=== PATIENT | female | born 1950 | race Caucasian/White ===

== ENCOUNTER 2019-02-04 17:46 | Inpatient (IN) | payer MEDICARE ==
[~2019-02-04] VITALS: Ht 167.6 cm; Wt 46.4 kg
[~2019-02-04 17:46] MED LIST: ALBU90OI6 INH; AZIT250 PO; Antivert25 MG PO; GUAI600T33 PO
[2019-02-04 19:09] LABS: BASOPHILS ABSOLUTE AUTO 0.05 K/mm3 (0.00-0.23); BASOPHILS PERCENT AUTO 1 % (0-2); EOSINOPHILS PERCENT AUTO 0 % (0-6); Hematocrit 43.1 % (33.0-51.0); Hemoglobin 14.2 g/dL (11.5-16.0); IMMATURE GRAN ABSOLUTE AUTO 0.02 K/mm3 (0.00-0.10); IMMATURE GRAN PERCENT AUTO 0 % (0-1); LYMPHOCYTES ABSOLUTE AUTO 0.32 K/mm3 (0.84-5.20); LYMPHOCYTES PERCENT AUTO 4 % (21-46); MONOCYTES ABSOLUTE AUTO 0.55 K/mm3 (0.16-1.47); MONOCYTES PERCENT AUTO 6 % (4-13); Mean Corpuscular HGB 29.5 pg (26.0-34.0); Mean Corpuscular HGB Conc 32.9 g/dL (31.5-36.5); Mean Corpuscular Volume 89 fL (80-100); Mean Platelet Volume 9.5 fL (9.1-12.4); NEUTROPHILS ABSOLUTE AUTO 8.11 K/mm3 (1.96-9.15); NEUTROPHILS PERCENT AUTO 90 % (41-73); Platelet Count 149 K/mm3 (150-400); RDW Coefficient Variation 12.4 % (11.7-14.2); RDW Standard Deviation 41.4 fL (35.1-46.3); Red Blood Cell Count 4.82 M/mm3 (3.80-5.20); White Blood Cell Count 9.05 K/mm3 (4.00-11.30)
[2019-02-04 19:21] LABS: Alanine Aminotransfer (ALT/SGP 17 U/L (12-78); Albumin, Blood 3.8 g/dL (3.4-5.0); Albumin/Globulin Ratio 1.1 (0.8-1.8); Alk Phos 82 U/L (50-136); Anion Gap 7 mmol/L (6-16); Aspartate Aminotrans (AST/SGOT 19 U/L (12-37); Bilirubin, Total 0.4 mg/dL (0.1-1.0); Blood Urea Nitrogen 7 mg/dL (8-24); Bun/Creatinine Ratio 16.2 (12.0-20.0); CO2, Blood 28 mmol/L (21-32); Calcium, Blood 8.5 mg/dL (8.5-10.1); Chloride, Blood 91 mmol/L (98-108); Creatinine, Blood 0.43 mg/dL (0.40-1.00); Globulin, Blood 3.6 g/dL (2.2-4.0); Glomerular Filtration Rate >60 (60-); Glucose, Blood 103 mg/dL (70-99); Potassium, Blood 3.8 mmol/L (3.5-5.5); Sodium, Blood 126 mmol/L (136-145); Total Protein, Blood 7.4 g/dL (6.4-8.2); Troponin I 0.064 ng/mL (0.000-0.040)
[2019-02-04 19:28] LABS: Influenza A Negative (NEGATIVE); Influenza B Negative (NEGATIVE)
[2019-02-04] MEDS ORDERED: ASPI325 PO (21:22)
[2019-02-04] MEDS ORDERED: GUAI600T33 PO (21:23)
--- NOTE | 2019-02-05 06:20 | NUR ---
SHIFT SUMMARY PT WAS A NEW ADMIT DURING THE NIGHT, ADMITTED FOR ACUTE RESPIRATORY FAILURE WITH HYPOXIA. SHE ARRIVED ON THE FLOOR APPROXIMATELY 2220. PT IS 68 Y/O, AND A&O X 4. SHE DENIED ANY ACUTE PAIN OR NAUSEA, BUT DID REPORT SOME SOB THAT WAS WORSENED WITH MOVEMENT. SHE IS ON 2L OF O2 VIA NC, AND SATTING IN THE LOW 90S. ALL OTHER VITALS REMAINED STABLE. NO OTHER ACUTE CHANGES IN PT CONDITION NOTED SINCE ADMISSION. WILL CONTINUE TO MONITOR AND TREAT PER EMAR.
[2019-02-05 10:52] LABS: Anion Gap 7 mmol/L (6-16); Blood Urea Nitrogen 10 mg/dL (8-24); Bun/Creatinine Ratio 22.5 (12.0-20.0); CO2, Blood 28 mmol/L (21-32); Calcium, Blood 8.1 mg/dL (8.5-10.1); Chloride, Blood 97 mmol/L (98-108); Creatinine, Blood 0.45 mg/dL (0.40-1.00); Glomerular Filtration Rate >60 (60-); Glucose, Blood 247 mg/dL (70-99); Potassium, Blood 3.6 mmol/L (3.5-5.5); Sodium, Blood 132 mmol/L (136-145)
--- NOTE | 2019-02-05 14:59 | NUR ---
Mrs. Stinson denies fears or concerns. She tells me she knows she will improve. She was emotionally guarded and distant. Non-mosque and declined prayer/deputy county counsel. Advised I would remain available.
--- NOTE | 2019-02-05 19:07 | NUR ---
SHIFT SUMMARY: NO ACUTE CHANGES TO REPORT THIS SHIFT. PT A&O; CALM AND COOPERATIVE WITH CARE. NO C/O PAIN THIS SHIFT. PT ON 2L O2 VIA NC; LUNGS COARSE/WHEEZY; IV STEROIDS, PO ABX & IV ABX CONTINUING. WCTM.
--- NOTE | 2019-02-06 07:31 | NUR ---
NOC SHIFT SUMMARY PT WAS PLEASANT AND COOPERATIVE WITH CARE THIS NIGHT. WENT TO SLEEP SHORTLY AFTER MIDNIGHT MEDS AND SLEPT RESTFULLY THROUGH THE NIGHT. NO ACUTE CHANGES THIS SHIFT. APPEARS IN NO ACUTE DISTRESS. REPORT TO ONCOMING RN.
--- NOTE | 2019-02-06 07:35 | NUR ---
PT agreed to let me work with her as of 729 today.
[2019-02-06 12:53] LABS: Anion Gap 8 mmol/L (6-16); Blood Urea Nitrogen 12 mg/dL (8-24); Bun/Creatinine Ratio 30.2 (12.0-20.0); CO2, Blood 29 mmol/L (21-32); Calcium, Blood 8.8 mg/dL (8.5-10.1); Chloride, Blood 99 mmol/L (98-108); Glomerular Filtration Rate >60 (60-); Glucose, Blood 91 mg/dL (70-99); Potassium, Blood 4.1 mmol/L (3.5-5.5); Sodium, Blood 136 mmol/L (136-145)
--- NOTE | 2019-02-06 19:08 | NUR ---
SHIFT SUMMARY PATIENT W/O C/O AT THIS TIME. TOLERATED DINNER. VOIDED, HAAD BM. FAMILY IN TO SEE. UPDATE GIVEN TO PT RE: PLAN OF CARE.
--- NOTE | 2019-02-06 19:12 | NUR ---
SHIFT SUMMARY PATIENT W/O C/O THIS SHIFT. UP TO SHOWER TODAY. TAKING PO WELL. FAMILY IN TO SEE TODAY. PLAN FOR D/C HOME TOMORROW.
--- NOTE | 2019-02-07 03:49 | NUR ---
NOC SHIFT SUMMARY NO ACUTE CHANGES NOTED THIS SHIFT. PT IS PLEASANT AND COOPERATIVE WITH CARE. AAOX4 RESP HAVE BEEN EVEN AND UNLABORED, ON O2 2LNC. VSS. PT PRESANTLY APPEARS TO BE SLEEPING RESTFULLY. APPEARS IN NO ACUTE DISTRESS WILL CONTINUE TO MONITOR.
[2019-02-07] MEDS ORDERED: AZIT250 PO (15:09)
[2019-02-07] MEDS ORDERED: FURO20 PO ×2 (15:10→15:14)
[2019-02-07] MEDS ORDERED: ALBU3IS INH (15:13)
[2019-02-07] MEDS ORDERED: GAVILAX17 GM PO (15:15)
[2019-02-07] MEDS ORDERED: DELTASONE20 MG PO (15:17)
[2019-02-07] MEDS ORDERED: CEFD300 PO (15:18)
--- NOTE | 2019-02-07 15:59 | NUR ---
DISCHARGE NOTE PT DISCHARGED VIA W/C POV WITH DAUGHTER TO HOME AND IN NO ACUTE DISTRESS AT TIME OF DISCHARGE. PT VERBALIZED UNDERSTANDING OF TAKING ALL MEDICATIONS PRESCRIBED AND TAKING FULL COURSE OF BOTH ANTIBIOTICS. PT TO FOLLOW UP WITH [facility] WITHIN 2 WEEKS.
== END 2019-02-07 16:00 | disposition home or self-care (01) | DRG 291 ==
LOC: ER 17:46 → MEDS 21:12
PROVIDERS: Internal Medicine; Physician Assistant; ADMIT Hospitalist
DX: I50.31 Acute diastolic (congestive) heart failure (principal); J96.01 Acute respiratory failure with hypoxia; J44.1 Chronic obstructive pulmonary disease with (acute) exacerbation; J44.0 Chronic obstructive pulmonary disease with (acute) lower respiratory infection; E87.1 Hypo-osmolality and hyponatremia; I24.8 Other forms of acute ischemic heart disease; J20.9 Acute bronchitis, unspecified; F17.210 Nicotine dependence, cigarettes, uncomplicated; R73.9 Hyperglycemia, unspecified; Z99.81 Dependence on supplemental oxygen
CPT/HCPCS: 36415; 71046; 80048; 80053; 82947; 83036; 83605; 83880; 84145; 84484; 85025; 87040; 87804; 93005; 93010; 93306; 94640; 94667; 94760; 94761; 96365; 99285-25; 99406; J0696; J1650; J2405; J2930; J7030; J7050

== ENCOUNTER 2019-05-16 04:52 | Inpatient (IN) | payer MEDICARE ==
[~2019-05-16] VITALS: Ht 167.6 cm; Wt 50.6 kg
[~2019-05-16 04:52] MED LIST changes: +ALBU3IS INH; +ASPI325 PO; +CEFD300 PO; +DELTASONE20 MG PO; +FURO20 PO; +GAVILAX17 GM PO
[2019-05-16] MEDS ORDERED: ATOR10 PO (05:05)
[2019-05-16] MEDS ORDERED: METO25ER PO (05:05)
[2019-05-16 05:18] LABS: BASOPHILS ABSOLUTE AUTO 0.04 K/mm3 (0.00-0.23); BASOPHILS PERCENT AUTO 1 % (0-2); EOSINOPHILS ABSOLUTE AUTO 0.11 K/mm3 (0.00-0.68); EOSINOPHILS PERCENT AUTO 1 % (0-6); Hematocrit 40.1 % (33.0-51.0); Hemoglobin 12.2 g/dL (11.5-16.0); IMMATURE GRAN ABSOLUTE AUTO 0.02 K/mm3 (0.00-0.10); IMMATURE GRAN PERCENT AUTO 0 % (0-1); LYMPHOCYTES ABSOLUTE AUTO 0.79 K/mm3 (0.84-5.20); LYMPHOCYTES PERCENT AUTO 10 % (21-46); MONOCYTES ABSOLUTE AUTO 0.37 K/mm3 (0.16-1.47); MONOCYTES PERCENT AUTO 5 % (4-13); Mean Corpuscular HGB 29.3 pg (26.0-34.0); Mean Corpuscular HGB Conc 30.4 g/dL (31.5-36.5); Mean Corpuscular Volume 96 fL (80-100); Mean Platelet Volume 10.6 fL (9.1-12.4); NEUTROPHILS ABSOLUTE AUTO 6.75 K/mm3 (1.96-9.15); NEUTROPHILS PERCENT AUTO 84 % (41-73); Platelet Count 180 K/mm3 (150-400); RDW Coefficient Variation 12.6 % (11.7-14.2); RDW Standard Deviation 44.5 fL (35.1-46.3); Red Blood Cell Count 4.17 M/mm3 (3.80-5.20); White Blood Cell Count 8.08 K/mm3 (4.00-11.30)
[2019-05-16 05:43] LABS: Alanine Aminotransfer (ALT/SGP 52 U/L (12-78); Albumin, Blood 3.8 g/dL (3.4-5.0); Albumin/Globulin Ratio 1.3 (0.8-1.8); Alk Phos 70 U/L (50-136); Anion Gap 3 mmol/L (6-16); Aspartate Aminotrans (AST/SGOT 36 U/L (12-37); Bilirubin, Total 0.5 mg/dL (0.1-1.0); Blood Urea Nitrogen 11 mg/dL (8-24); Bun/Creatinine Ratio 14.2 (12.0-20.0); CO2, Blood 35 mmol/L (21-32); Calcium, Blood 8.1 mg/dL (8.5-10.1); Chloride, Blood 101 mmol/L (98-108); Creatinine, Blood 0.78 mg/dL (0.40-1.00); Globulin, Blood 2.9 g/dL (2.2-4.0); Glomerular Filtration Rate >60 (60-); Glucose, Blood 231 mg/dL (70-99); Potassium, Blood 4.2 mmol/L (3.5-5.5); Sodium, Blood 139 mmol/L (136-145); Total Protein, Blood 6.7 g/dL (6.4-8.2)
[2019-05-16 05:45] LABS: Troponin I 0.054 ng/mL (0.000-0.040)
[2019-05-16 06:28] LABS: PCO2 Arterial 76.9 mmHg (35-45); PO2 Arterial 57.6 mmHg (80-100); pH Blood Arterial 7.25 (7.35-7.45)
[2019-05-16] MEDS ORDERED: ASPI81CH PO (12:02)
--- NOTE | 2019-05-16 12:57 | NUR ---
PATIENT ARRIVED FROM ED IN ROOM 14 VIA [facility] AFTER REPORT WAS OBTAINED FROM POLLY ARCE, PATIENT WAS ABLE TO MOVE SELF OVER FROM GURNEY TO BED, PATIENT WAS ON BIPAP UPON ARRIVAL, BUT PLACED ON NASAL CANNULA, PLACED ON MONITOR, VSS, NORMAL SINUS RHYTHM, 02 SATS AT 97 %, AFEBRILE, DENIES PAIN, CHEST PAIN/PRESSURE, REPORTS NO SOB, SCD'S PLACED ON PATIENT, PATIENT IS ABLE TO GET UP TO BSC TO URINATE AND HAVE A BOWEL MOVEMENT, LUNG SOUNDS ARE DIMINISHED AND SLIGHTLY TIGHT, SKIN DRY, BUT INTACT, PATIENT AND DAUGHTER WERE ORIENTED TO ROOM AND NEW ENVIRONMENT, CALL LIGHT IN REACH, WILL CONTINUE TO MONITOR.
--- NOTE | 2019-05-16 13:52 | NUR ---
PATIENT IS RESTING COMFORTABLY, APPEARS TO BE SLEEPING, CONTINUES ON 2L NC AND SATING AT 98%, ABLE TO MAKE NEEDS KNOWN, CALL LIGHT IN REACH, WILL CONTINUE TO MONITOR.
--- NOTE | 2019-05-16 16:44 | NUR ---
REPORT WAS GIVEN TO POLLY HERNANDEZ, ON PCU VIA TELEPHONE, PATIENT WILL BE MOVED TO ROOM PCU 8.
--- NOTE | 2019-05-16 17:53 | NUR ---
PATIENT TRANSFERRED TO PCU 8 VIA WHEELCHAIR WITH ALL BELONGINGS AND MEDICATIONS.
--- NOTE | 2019-05-16 18:45 | NUR ---
SHIFT SUMMARY PT TRANSFERRED FROM ICU AT 1800. A&OX4, VSS, TELE SR W/PACS & PVCS @ 94, BIOX AT BEDSIDE. TEDS & SCDS ON. VIJAY PO, DENIES N&V. DENIES PAIN. DENIES SOB AT THIS TIME; 3L NC AT REST AND 4L NC W/EXERTION. AMB SBA TO BRP. VOIDING WELL. WCTM & TX PER EMAR UNTIL REPORT GIVEN TO ONCOMING GEE MATIAS.
[2019-05-17 03:19] LABS: BASOPHILS PERCENT AUTO 0 % (0-2); EOSINOPHILS PERCENT AUTO 0 % (0-6); Hematocrit 35.2 % (33.0-51.0); Hemoglobin 11.2 g/dL (11.5-16.0); IMMATURE GRAN ABSOLUTE AUTO 0.01 K/mm3 (0.00-0.10); IMMATURE GRAN PERCENT AUTO 0 % (0-1); LYMPHOCYTES ABSOLUTE AUTO 0.37 K/mm3 (0.84-5.20); LYMPHOCYTES PERCENT AUTO 10 % (21-46); MONOCYTES ABSOLUTE AUTO 0.15 K/mm3 (0.16-1.47); MONOCYTES PERCENT AUTO 4 % (4-13); Mean Corpuscular HGB 29.9 pg (26.0-34.0); Mean Corpuscular HGB Conc 31.8 g/dL (31.5-36.5); Mean Corpuscular Volume 94 fL (80-100); Mean Platelet Volume 11.1 fL (9.1-12.4); NEUTROPHILS ABSOLUTE AUTO 3.36 K/mm3 (1.96-9.15); NEUTROPHILS PERCENT AUTO 86 % (41-73); Platelet Count 128 K/mm3 (150-400); RDW Coefficient Variation 12.6 % (11.7-14.2); RDW Standard Deviation 43.6 fL (35.1-46.3); Red Blood Cell Count 3.74 M/mm3 (3.80-5.20); White Blood Cell Count 3.89 K/mm3 (4.00-11.30)
[2019-05-17 03:37] LABS: Alanine Aminotransfer (ALT/SGP 46 U/L (12-78); Albumin, Blood 3.6 g/dL (3.4-5.0); Albumin/Globulin Ratio 1.3 (0.8-1.8); Alk Phos 61 U/L (50-136); Anion Gap 3 mmol/L (6-16); Aspartate Aminotrans (AST/SGOT 35 U/L (12-37); Bilirubin, Total 0.3 mg/dL (0.1-1.0); Blood Urea Nitrogen 14 mg/dL (8-24); Bun/Creatinine Ratio 26.9 (12.0-20.0); CO2, Blood 34 mmol/L (21-32); Calcium, Blood 8.6 mg/dL (8.5-10.1); Chloride, Blood 102 mmol/L (98-108); Creatinine, Blood 0.52 mg/dL (0.40-1.00); Globulin, Blood 2.7 g/dL (2.2-4.0); Glomerular Filtration Rate >60 (60-); Glucose, Blood 137 mg/dL (70-99); Potassium, Blood 4.2 mmol/L (3.5-5.5); Sodium, Blood 139 mmol/L (136-145); Total Protein, Blood 6.3 g/dL (6.4-8.2)
[2019-05-17 05:06] LABS: PCO2 Arterial 52.6 mmHg (35-45); PO2 Arterial 126 mmHg (80-100); pH Blood Arterial 7.41 (7.35-7.45)
--- NOTE | 2019-05-17 05:55 | NUR ---
NEW 20G PIV PLACED TO RIGHT WRIST AFTER FIRST ATTEMT TO PLACE IN RIGHT HAND FAILED. GOOD BLOOD RETURN NOTED AND SITE FLUSHES WITH EASE. PREV 18G PIV TO LEFT AC REMOVED AFTER BECOMING PAINFUL AND LEAKING. CATH TIP INTACT, TOLERATED WELL. DEMNIES FURTHER NEEDS OR WANTS AT THIS TIME. SAFETY MEASURES IN PLACE. WILL CONTINUE TO MONITOR.
--- NOTE | 2019-05-17 06:06 | NUR ---
SHIFT SUMMARY LYING IN HIGH FOWLERS WITH EYES OPEN WHILE WATCHING TV AND DRINKLING COFFEE. WAS GETTING CONCERNED ABOUT HAVING A BM, BUT WAS ABLE TO HAVE A LARGE BM WITHOUT DIFFICULTY. DENIES PAIN, DISCOMFORT, OR FURTHER NEEDS AT THIS TIME. NO FURTHER CHANGES SINCE START OF SHIFT. SAFETY MEASURES IN PLACE. WILL CONTINUE TO MONITOR.
--- NOTE | 2019-05-17 17:36 | NUR ---
SHIFT SUMMARY/ TRANSFER NOTE PT TRANSFERRED TO ROOM 363 AT 1730. REPORT GIVEN TO EDGARDO HATCH RN AT 1715 WHO ASSUMED CARE UPON TRANSFER. PT AXO, PLEASANT AND COOPERATIVE WITH CARE. ON 3L AT REST AND 4L WITH EXERTION. PT O2 REMAINED AT 95 %. SINUS TACH. SINUS WITH PVC AND PAC'S 110-90'S. NO ACUTE CHANGES THIS SHIFT. PT UP WITH SBA. BED IN LOW POSITION, CALL LIGHT WITHIN REACH.
--- NOTE | 2019-05-17 17:39 | NUR ---
PATIENT TRANSFER THE PATIENT WAS TRANSFERRED TO THE MEDICAL FLOOR TO ROOM #363 FROM PCU#8, AFTER REPORT WAS CALLED UP TO THE FLOOR FROM ALTAF MATIAS. THE PATIENT WAS BROUGHT UP IN A WHEEL CHAIR AND MADE COMFORTABLE IN HER ROOM, WITH THE CALL LIGHT WITHIN REACH. WILL CONTINUE TO MONITOR.
--- NOTE | 2019-05-18 06:17 | NUR ---
SHIFT SUMMARY PT HAS NOT SLEPT WELL DURING THE NIGHT. HAS HAD C/O FEELING LIKE SHE CAN'T BREATHE. STATES SHE IS HAVING SINUS PRESSURE AND WAS GIVEN SUDAFED WHICH HELPED LAST NIGHT. RECEIVED NO RELIEF FROM THAT AND IS HAVING INCREASED ANXIETY, ORDER RECEIVED FOR PO ATIVAN. PT HAD SOME RELIEF FROM THIS, BUT NOW FEELING THIS AM IF SHE IS MORE SHORT OF BREATH. RT CALLED FOR BREATHING TREATMENT, WILL CONTINUE TO MONITOR.
--- NOTE | 2019-05-18 18:00 | NUR ---
SHIFT SUMMARY THE PATIENT PRESENTED THIS SHIFT A&O X4, WITH VITALS WNL AND WITH LUNG SOUNDS THAT WERE DIMINISHED WITH FINE CRACKLES AT THE BASES. THE PATIENT REFUSED BREAKFAST, STATING THAT SHE WAS TO TIRED TO EAT. THE PATIENT SLEPT MOST OF THE MORNING AND ATE LUNCH. THE PATIENT HAS HAD FAMILY AND FRIENDS VISITING THIS SHIFT. THE PATIENT IS EATING DINNER AT THIS TIME, WILL CONTINUE TO MONITOR.
--- NOTE | 2019-05-19 06:09 | NUR ---
SHIFT SUMMARY PT SLEPT WELL, HAD A MUCH BETTER NIGHT. OFFERS NO C/O'S THIS AM. NO ACUTE EVENTS NOTED DURING THE NIGHT, WILL CONTINUE TO MONITOR.
--- NOTE | 2019-05-19 11:50 | NUR ---
Patient is sitting up in bed and daughter Jodie is bedside. Patient and Jodie told me about their family, their amrit backgound and about the of Jodie's child 23 years ago. Jodie clearly showed signs of spiritual distress yet allowed me to provide grief support, pastoral correctional substance abuse counselor and normalized her experience. Patient explained that she is feeling better and will most likely be discharged today. I provided prayer for patient and Jodie. Both responded well to all interventions and showed signs of restored amrit.
[2019-05-19] MEDS ORDERED: FURO40 PO (12:56)
[2019-05-19] MEDS ORDERED: ALBU3IS INH (12:58)
[2019-05-19] MEDS ORDERED: METO25ER PO (13:00)
[2019-05-19] MEDS ORDERED: PRED10 (13:05)
[2019-05-19] MEDS ORDERED: SUDAFED PO (13:10)
[2019-05-19] MEDS ORDERED: Florastor250 MG PO (13:12)
[2019-05-19] MEDS ORDERED: AZIT500 PO (13:13)
[2019-05-19] MEDS ORDERED: CEFD300 PO (13:14)
--- NOTE | 2019-05-19 14:17 | NUR ---
PT. DISCHARGED HOME WITH DAUGHTER. THE ONLY IV THE PT. HAD WAS IN HER RIGHT WRIST WHICH I DC'D INTACT BEFORE DISCHARGE. MEDS FAXED TO [facility] ON [address]. PT'S DAUGHTER BROUGHT IN THE PT'S OXYGEN TO GO HOME WITH.
== END 2019-05-19 14:05 | disposition home or self-care (01) | DRG 291 ==
LOC: ER 04:52 → ERHOLD 06:37 → ICUW 11:48 → PCU 18:05 → MEDS 05-17 17:27 → ENPENDDIS 05-19 11:13 → MEDS 05-19 14:05
PROVIDERS: Emergency Medicine; ADMIT Internal Medicine
DX: I50.33 Acute on chronic diastolic (congestive) heart failure (principal); J96.21 Acute and chronic respiratory failure with hypoxia; J96.22 Acute and chronic respiratory failure with hypercapnia; J44.1 Chronic obstructive pulmonary disease with (acute) exacerbation; E87.2 Acidosis; R64 Cachexia; E78.5 Hyperlipidemia, unspecified; Z99.81 Dependence on supplemental oxygen; Z87.891 Personal history of nicotine dependence; Z66 Do not resuscitate
CPT/HCPCS: 36415; 36600; 71045; 74018; 80053; 82803; 83605; 83880; 84484; 85025; 87040; 93005; 93010; 94640; 94644; 94660; 94760; 94762; 96365; 96366; 96367; 96372-59; 96375; 99285-25; J0456; J0696; J1100; J1650; J1940; J2930; J7050; J7512

== ENCOUNTER 2019-06-01 13:14 | Emergency (ER) | payer MEDICARE ==
[~2019-06-01] VITALS: Ht 167.6 cm; Wt 49.0 kg
[~2019-06-01 13:14] MED LIST changes: +ASPI81CH PO; +ATOR10 PO; +AZIT500 PO; +FURO40 PO; +Florastor250 MG PO; +METO25ER PO; +PRED10; +SUDAFED PO
[2019-06-01 13:48] LABS: BASOPHILS ABSOLUTE AUTO 0.02 K/mm3 (0.00-0.23); BASOPHILS PERCENT AUTO 0 % (0-2); EOSINOPHILS ABSOLUTE AUTO 0.07 K/mm3 (0.00-0.68); EOSINOPHILS PERCENT AUTO 1 % (0-6); Hematocrit 41.4 % (33.0-51.0); Hemoglobin 12.9 g/dL (11.5-16.0); IMMATURE GRAN ABSOLUTE AUTO 0.02 K/mm3 (0.00-0.10); IMMATURE GRAN PERCENT AUTO 0 % (0-1); LYMPHOCYTES ABSOLUTE AUTO 0.92 K/mm3 (0.84-5.20); LYMPHOCYTES PERCENT AUTO 14 % (21-46); MONOCYTES ABSOLUTE AUTO 0.75 K/mm3 (0.16-1.47); MONOCYTES PERCENT AUTO 11 % (4-13); Mean Corpuscular HGB 29.3 pg (26.0-34.0); Mean Corpuscular HGB Conc 31.2 g/dL (31.5-36.5); Mean Corpuscular Volume 94 fL (80-100); Mean Platelet Volume 9.8 fL (9.1-12.4); NEUTROPHILS PERCENT AUTO 74 % (41-73); Platelet Count 182 K/mm3 (150-400); RDW Coefficient Variation 12.6 % (11.7-14.2); RDW Standard Deviation 43.6 fL (35.1-46.3); White Blood Cell Count 6.78 K/mm3 (4.00-11.30)
[2019-06-01 14:04] LABS: Alanine Aminotransfer (ALT/SGP 34 U/L (12-78); Albumin, Blood 3.7 g/dL (3.4-5.0); Albumin/Globulin Ratio 1.4 (0.8-1.8); Alk Phos 61 U/L (50-136); Anion Gap 4 mmol/L (6-16); Aspartate Aminotrans (AST/SGOT 16 U/L (12-37); Bilirubin, Total 0.5 mg/dL (0.1-1.0); Blood Urea Nitrogen 18 mg/dL (8-24); Bun/Creatinine Ratio 31.6 (12.0-20.0); CO2, Blood 33 mmol/L (21-32); Calcium, Blood 8.5 mg/dL (8.5-10.1); Chloride, Blood 99 mmol/L (98-108); Creatinine, Blood 0.57 mg/dL (0.40-1.00); Globulin, Blood 2.7 g/dL (2.2-4.0); Glomerular Filtration Rate >60 (60-); Glucose, Blood 155 mg/dL (70-99); Sodium, Blood 136 mmol/L (136-145); Total Protein, Blood 6.4 g/dL (6.4-8.2); Troponin I <0.015 ng/mL (0.000-0.040)
== END 2019-06-01 16:32 | disposition home or self-care (01) ==
LOC: ER 13:14
PROVIDERS: Physician Assistant
DX: R07.9 Chest pain, unspecified (principal); J44.9 Chronic obstructive pulmonary disease, unspecified; E78.5 Hyperlipidemia, unspecified; I50.9 Heart failure, unspecified; Z87.891 Personal history of nicotine dependence; Z79.899 Other long term (current) drug therapy; Z79.82 Long term (current) use of aspirin
CPT/HCPCS: 36415; 71046; 80053; 84484; 85025; 93005; 93010; 94640; 99285-25

== ENCOUNTER 2019-08-20 14:18 | Emergency (ER) | payer MEDICARE ==
[~2019-08-20] VITALS: Ht 167.6 cm; Wt 52.2 kg
[2019-08-20 15:04] LABS: BASOPHILS ABSOLUTE AUTO 0.02 K/mm3 (0.00-0.23); BASOPHILS PERCENT AUTO 0 % (0-2); EOSINOPHILS ABSOLUTE AUTO 0.04 K/mm3 (0.00-0.68); EOSINOPHILS PERCENT AUTO 1 % (0-6); Hematocrit 41.5 % (33.0-51.0); Hemoglobin 13.1 g/dL (11.5-16.0); IMMATURE GRAN ABSOLUTE AUTO 0.02 K/mm3 (0.00-0.10); IMMATURE GRAN PERCENT AUTO 0 % (0-1); LYMPHOCYTES ABSOLUTE AUTO 0.87 K/mm3 (0.84-5.20); LYMPHOCYTES PERCENT AUTO 14 % (21-46); MONOCYTES ABSOLUTE AUTO 0.76 K/mm3 (0.16-1.47); MONOCYTES PERCENT AUTO 12 % (4-13); Mean Corpuscular HGB 29.6 pg (26.0-34.0); Mean Corpuscular HGB Conc 31.6 g/dL (31.5-36.5); Mean Corpuscular Volume 94 fL (80-100); Mean Platelet Volume 10.4 fL (9.1-12.4); NEUTROPHILS ABSOLUTE AUTO 4.54 K/mm3 (1.96-9.15); NEUTROPHILS PERCENT AUTO 73 % (41-73); Platelet Count 205 K/mm3 (150-400); RDW Coefficient Variation 12.8 % (11.7-14.2); RDW Standard Deviation 44.5 fL (35.1-46.3); Red Blood Cell Count 4.42 M/mm3 (3.80-5.20); White Blood Cell Count 6.25 K/mm3 (4.00-11.30)
[2019-08-20 15:27] LABS: Alanine Aminotransfer (ALT/SGP 29 U/L (12-78); Alk Phos 81 U/L (50-136); Anion Gap 3 mmol/L (6-16); Aspartate Aminotrans (AST/SGOT 24 U/L (12-37); Bilirubin, Total 0.5 mg/dL (0.1-1.0); Blood Urea Nitrogen 7 mg/dL (8-24); Bun/Creatinine Ratio 14.4 (12.0-20.0); CO2, Blood 35 mmol/L (21-32); Calcium, Blood 9.1 mg/dL (8.5-10.1); Chloride, Blood 93 mmol/L (98-108); Creatinine, Blood 0.49 mg/dL (0.40-1.00); Globulin, Blood 3.9 g/dL (2.2-4.0); Glomerular Filtration Rate >60 (60-); Glucose, Blood 103 mg/dL (70-99); Potassium, Blood 3.7 mmol/L (3.5-5.5); Sodium, Blood 131 mmol/L (136-145); Total Protein, Blood 7.9 g/dL (6.4-8.2)
[2019-08-20] MEDS ORDERED: Wal-Phed30 MG PO (15:27)
[2019-08-20 15:29] LABS: Troponin I <0.015 ng/mL (0.000-0.040)
[2019-08-20] MEDS ORDERED: METPRE4DP PO (17:06)
[2019-08-20] MEDS ORDERED: LEVO750 PO (17:06)
== END 2019-08-20 18:13 | disposition home or self-care (01) ==
LOC: ER 14:18
PROVIDERS: Emergency Medicine
DX: J44.0 Chronic obstructive pulmonary disease with (acute) lower respiratory infection (principal); J18.9 Pneumonia, unspecified organism; I50.9 Heart failure, unspecified; E78.5 Hyperlipidemia, unspecified; Z88.2 Allergy status to sulfonamides; Z91.018 Allergy to other foods; Z79.82 Long term (current) use of aspirin; Z79.899 Other long term (current) drug therapy; Z79.51 Long term (current) use of inhaled steroids; Z99.81 Dependence on supplemental oxygen
CPT/HCPCS: 36415; 71046; 80053; 83605; 83880; 84484; 85025; 87040; 93005; 93010; 96365; 96367; 96375; 99284-25; J0456; J0696; J2930; J7050

== ENCOUNTER 2019-09-07 22:32 | Emergency (ER) | payer MEDICARE ==
[~2019-09-07] VITALS: Ht 167.6 cm; Wt 49.0 kg
[~2019-09-07 22:32] MED LIST changes: +LEVO750 PO; +METPRE4DP PO; +Wal-Phed30 MG PO
[2019-09-08 00:25] LABS: BASOPHILS ABSOLUTE AUTO 0.04 K/mm3 (0.00-0.23); BASOPHILS PERCENT AUTO 1 % (0-2); EOSINOPHILS ABSOLUTE AUTO 0.09 K/mm3 (0.00-0.68); EOSINOPHILS PERCENT AUTO 1 % (0-6); Hematocrit 38.5 % (33.0-51.0); Hemoglobin 12.2 g/dL (11.5-16.0); IMMATURE GRAN ABSOLUTE AUTO 0.01 K/mm3 (0.00-0.10); IMMATURE GRAN PERCENT AUTO 0 % (0-1); LYMPHOCYTES PERCENT AUTO 17 % (21-46); MONOCYTES PERCENT AUTO 9 % (4-13); Mean Corpuscular HGB 29.6 pg (26.0-34.0); Mean Corpuscular HGB Conc 31.7 g/dL (31.5-36.5); Mean Corpuscular Volume 93 fL (80-100); Mean Platelet Volume 9.8 fL (9.1-12.4); NEUTROPHILS ABSOLUTE AUTO 4.64 K/mm3 (1.96-9.15); NEUTROPHILS PERCENT AUTO 72 % (41-73); Platelet Count 224 K/mm3 (150-400); RDW Coefficient Variation 12.4 % (11.7-14.2); RDW Standard Deviation 43.4 fL (35.1-46.3); Red Blood Cell Count 4.12 M/mm3 (3.80-5.20); White Blood Cell Count 6.48 K/mm3 (4.00-11.30)
[2019-09-08 00:45] LABS: Alanine Aminotransfer (ALT/SGP 23 U/L (12-78); Albumin, Blood 3.8 g/dL (3.4-5.0); Albumin/Globulin Ratio 1.1 (0.8-1.8); Alk Phos 72 U/L (50-136); Anion Gap 5 mmol/L (6-16); Aspartate Aminotrans (AST/SGOT 29 U/L (12-37); Bilirubin, Total 0.5 mg/dL (0.1-1.0); Blood Urea Nitrogen 18 mg/dL (8-24); Bun/Creatinine Ratio 32.9 (12.0-20.0); CO2, Blood 33 mmol/L (21-32); Calcium, Blood 8.9 mg/dL (8.5-10.1); Chloride, Blood 95 mmol/L (98-108); Creatinine, Blood 0.55 mg/dL (0.40-1.00); Globulin, Blood 3.5 g/dL (2.2-4.0); Glomerular Filtration Rate >60 (60-); Glucose, Blood 102 mg/dL (70-99); Potassium, Blood 5.2 mmol/L (3.5-5.5); Sodium, Blood 133 mmol/L (136-145); Total Protein, Blood 7.3 g/dL (6.4-8.2); Troponin I <0.015 ng/mL (0.000-0.040)
[2019-09-08] MEDS ORDERED: Prednisone20 MG PO (05:29)
== END 2019-09-08 06:10 | disposition home or self-care (01) ==
LOC: ER 22:32
PROVIDERS: Physician Assistant
DX: J44.1 Chronic obstructive pulmonary disease with (acute) exacerbation (principal); Z87.01 Personal history of pneumonia (recurrent); Z87.891 Personal history of nicotine dependence; Z88.2 Allergy status to sulfonamides; Z91.018 Allergy to other foods; Z79.899 Other long term (current) drug therapy; Z79.82 Long term (current) use of aspirin; Z79.52 Long term (current) use of systemic steroids
CPT/HCPCS: 36415; 71046; 80053; 83880; 84484; 85025; 93005; 93010; 94640; 94644; 96374; 99284-25; J2930

== ENCOUNTER 2019-10-11 01:05 | Inpatient (IN) | payer MEDICARE ==
[~2019-10-11] VITALS: Ht 165.1 cm; Wt 51.1 kg
[~2019-10-11 01:05] MED LIST changes: +Prednisone20 MG PO
[2019-10-11 01:25] LABS: Chloride (POC) 91 mmol/L (98-108); Creatinine (POC) 0.8 mg/dL (0.6-1.0); Glucose (ISTAT POC) 164 mg/dL (70-99); Hemoglobin (POC) 13.6 g/dL (12.0-16.0); Potassium (POC) 4.6 mmol/L (3.5-5.5); Sodium (POC) 129 mmol/L (135-148); Total CO2 (POC) 32 mmol/L (21-32)
[2019-10-11 01:33] LABS: BASOPHILS ABSOLUTE AUTO 0.08 K/mm3 (0.00-0.23); BASOPHILS PERCENT AUTO 1 % (0-2); EOSINOPHILS ABSOLUTE AUTO 0.21 K/mm3 (0.00-0.68); EOSINOPHILS PERCENT AUTO 2 % (0-6); Hematocrit 40.7 % (33.0-51.0); Hemoglobin 12.7 g/dL (11.5-16.0); IMMATURE GRAN ABSOLUTE AUTO 0.02 K/mm3 (0.00-0.10); IMMATURE GRAN PERCENT AUTO 0 % (0-1); LYMPHOCYTES ABSOLUTE AUTO 3.22 K/mm3 (0.84-5.20); LYMPHOCYTES PERCENT AUTO 36 % (21-46); MONOCYTES PERCENT AUTO 10 % (4-13); Mean Corpuscular HGB 29.5 pg (26.0-34.0); Mean Corpuscular HGB Conc 31.2 g/dL (31.5-36.5); Mean Corpuscular Volume 94 fL (80-100); Mean Platelet Volume 9.6 fL (9.1-12.4); NEUTROPHILS ABSOLUTE AUTO 4.62 K/mm3 (1.96-9.15); NEUTROPHILS PERCENT AUTO 51 % (41-73); Platelet Count 274 K/mm3 (150-400); RDW Coefficient Variation 11.8 % (11.7-14.2); RDW Standard Deviation 40.8 fL (35.1-46.3); Red Blood Cell Count 4.31 M/mm3 (3.80-5.20); White Blood Cell Count 9.05 K/mm3 (4.00-11.30)
[2019-10-11] MEDS ORDERED: BROVANA15 MCG/2 M INH (01:36)
[2019-10-11] MEDS ORDERED: FUROSEMIDE40 MG PO (01:37)
[2019-10-11 01:42] LABS: pH Blood Venous 7.14 (7.34-7.37)
[2019-10-11 01:43] LABS: Base Excess Venous 0.5 mmol/L; Bicarbonate Venous 22.9 mmol/L (24.0-30.0); PCO2 Venous 87.8 mmHg (38-42); PO2 Venous 136 mmHg (38-42)
[2019-10-11 01:54] LABS: Alanine Aminotransfer (ALT/SGP 34 U/L (12-78); Albumin, Blood 3.4 g/dL (3.4-5.0); Alk Phos 91 U/L (50-136); Anion Gap 5 mmol/L (6-16); Aspartate Aminotrans (AST/SGOT 35 U/L (12-37); Bilirubin, Total 0.3 mg/dL (0.1-1.0); Blood Urea Nitrogen 12 mg/dL (8-24); Bun/Creatinine Ratio 18.5 (12.0-20.0); CO2, Blood 29 mmol/L (21-32); Chloride, Blood 95 mmol/L (98-108); Creatinine, Blood 0.65 mg/dL (0.40-1.00); Globulin, Blood 3.5 g/dL (2.2-4.0); Glomerular Filtration Rate >60 (60-); Glucose, Blood 161 mg/dL (70-99); Potassium, Blood 4.5 mmol/L (3.5-5.5); Sodium, Blood 129 mmol/L (136-145); Total Protein, Blood 6.9 g/dL (6.4-8.2); Troponin I <0.015 ng/mL (0.000-0.040)
[2019-10-11 05:16] LABS: PO2 Arterial 131 mmHg (80-100); pH Blood Arterial 7.08 (7.35-7.45)
[2019-10-11 05:17] LABS: PCO2 Arterial 88.5 mmHg (35-45)
--- NOTE | 2019-10-11 07:10 | NUR ---
ASSUMED PT CARE/END OF SHIFT SUMMARY PT ARRIVED ON UNIT AROUND 0300 FROM ED SECONDARY TO RESPIRATORY FAILURE. BIPAP PRESSURES 18/8; FIO2 60% WITH RR 40'S; TV 300-500. UPON ARRIVAL PT WAS ONLY WITHDRAWALING FROM NOXIOUS STIMULI. SHE WAS USING ACCESSORY MUSCLES TO BREATHE. LUNG SOUNDS DIMINISHED T/O ALL LOBES. SINUS TACH WITH HR 110'S. BLOOD PRESSURES STARTED OUT I40'S SYSTOLIC; HOWEVER, SLOWLY STARTED TRENDING DOWN. NOTIFIED DR. MOSQUEDA WHEN SBP REACHED 90'S WITH MAP'S 60'S. NEW ORDERS TO BOLUS 2L OF FLUID WIDE OPEN. AFTER FIRST LITER BP'S STILL HADN'T RESPONDED AND WERE STILL TRENDING DOWN WITH SBP 70'S AND MAP IN THE 50'S. DR. MOSQUEDA CALLED AND NOTIFIED AGAIN WITH CRITICAL LAB RESULTS; ABG PH 7.01 AND CO2 88. NEW ORDERS TO GO AHEAD AND GIVE THE SECOND LITER WIDE OPEN AND ONE MORE AFTER THAT; WELL , GIVE ONE AMP OF BICARB STAT. PT IS NOW MORE ALERT AND ORIENTED; ABLE TO COMMUNICATE WITH STAFF. RESPONDS TO VERBAL STIMULI AND FOLLOWS DIRECTIONS APPROPRIATELY. AND DAUGHTER AT BEDSIDE. STATES THAT SINCE JANUARY, WHEN SHE WAS ADMITTED DURING THE SNOW STORM FOR PNEUMONIA, SHE HAS SINCE DECLINED AT HOME. DAUGHTER STATES SHE WAS TAKING YUPELRI NEBULIZER THAT WAS NEW TO THE PATIENT AND SINCE SHE STARTED TAKING IT SHE HAD NOTICED IT CAUSED HER TO FEEL MORE SOB. PT HAS YET TO VOID SINCE ADMIT TO UNIT. WHEN ASKED IF SHE HAS TO VOID; SHE DENIES THE NEED. 3L BEING BOLUSED IN CURRENTLY; TO BE CHANGED TO MAINTENANCE OF 150MLS/HR WHEN FINISHED. ABG RECHECKED BY RT AT 0700. SKIN IS FRAGILE, COOL, MOTTLED, AND DIAPHORETIC, BUT INTACT. BIPAP CURRENTLY AT 16/8; FIO2 40%; RR 20'S; TV 900-1000. REPORT HANDED OFF TO POLLY DANIEL.
[2019-10-11 07:26] LABS: PO2 Arterial 83.5 mmHg (80-100); pH Blood Arterial 7.15 (7.35-7.45)
[2019-10-11 07:27] LABS: PCO2 Arterial 76.9 mmHg (35-45)
--- NOTE | 2019-10-11 07:40 | NUR ---
BEGINNING OF SHIFT Assumed care at 0700. Bedside report recieved from Fer MATIAS. Family in room at time of report. Pt on BiPAP 16/8, 40% FiO2. RR 24-28. Pt arousable to verbal stimulus. Family reports "The stuff they gave her to calm down is wearing off. You may want to give her more or else she will rip the mask off". This RN educated family about blood gas results compared with admission. Family verbalizes understanding and continues verbalized concern about agitation. This RN at bedside to work with pt. Pt sleeping. Awakens occasionally and reaches for BiPAP mask. Pt is redirectable. Family has departed at this time. Bed in lowest position. Call light in reach.
--- NOTE | 2019-10-11 08:10 | NUR ---
SPOKE TO DR MOORE Provider inquired about pt's mentation and respiratory status. Update given. Provider stated to increase IPAP to 22 and check VBG at 1000. Notified provider that pt became hypotensive with IPAP of 18. Provider would like IPAP increased to 22 and EPAP to remain at 8.
[2019-10-11 10:18] LABS: Base Excess Venous 1.9 mmol/L; Bicarbonate Venous 24.3 mmol/L (24.0-30.0); PCO2 Venous 63.3 mmHg (38-42); PO2 Venous 28.4 mmHg (38-42); pH Blood Venous 7.26 (7.34-7.37)
--- NOTE | 2019-10-11 10:30 | NUR ---
UPDATE Discussed VBG results with Dr Wolfe. Provider states pt is okay to take breaks from BiPAP.
[2019-10-11 10:52] LABS: Source, Urine Catheter
[2019-10-11 11:08] LABS: Bilirubin, Urine Neg (Neg); Blood, Urine Neg (Neg); Glucose Qualitative, Urine Neg (Neg); Ketones, Urine Neg (Neg); Leukocyte Esterase, Urine Neg (Neg); Nitrite, Urine Neg (Neg); Protein, Urine 2+ (Neg); Specific Gravity, Urine 1.015 (1.003-1.022); Urobilinogen, Urine NORM (Normal)
[2019-10-11 11:51] LABS: Appearance, Urine Clear (Clear); Color, Urine Yellow (P-Yellow)
[2019-10-11 11:53] LABS: Bacteria Rare /hpf; Red Blood Cells, Urine 0-2 /hpf (0-2); Squamous Epithelial Cells Rare /hpf (Few); WBC Cast 0-2 /lpf (0)
--- NOTE | 2019-10-11 14:40 | NUR ---
UPDATE Pt tolerated 1.5 hour break from BiPAP. Pt wore 3 LPM NC, which is home dose of O2. Pt performed oral care with assistance from this RN. Pt now back on BiPAP.
--- NOTE | 2019-10-11 15:55 | NUR ---
CALL PLACED TO DR MOORE Per provider, BiPAP may be changed to 18/8 if improvment is seen in next VBG. Provider states pt is okay to eat dinner, cardiac/heart healthy diet ordered. Provider stated she would like pt to wear BiPAP overnight.
[2019-10-11 16:53] LABS: Base Excess Venous 4.8 mmol/L; Bicarbonate Venous 26.4 mmol/L (24.0-30.0); PCO2 Venous 70.7 mmHg (38-42); PO2 Venous 28.5 mmHg (38-42)
[2019-10-11 16:54] LABS: pH Blood Venous 7.26 (7.34-7.37)
--- NOTE | 2019-10-11 17:53 | NUR ---
PLAN OF CARE DISCUSSED WITH DR OSCAR Carballo to remain on 15/07. Pt currently off BiPAP to eat dinner, provider aware. Pt on 3 LPM NC, which is home O2 dose. SpO2 90% or greater.
--- NOTE | 2019-10-11 18:09 | NUR ---
SUMMARY Pt is A&O x 4, visiting with at bedside. Pt is currently off BiPAP and on 3 LPM NC, which is her home dose of O2. Pt was off BiPAP earlier this afternoon for 1.5 hours, additionally. Pt ate cardiac diet dinner, and tolerated it well. Plan is for pt to resume BiPAP use tonight. On auscultation, lungs are dim t/o. Pt has been sinus rhythm for entire shift. BP stable. Mottling from feet to mid thigh, diminished in appearance. Pt has not been OOB this shift. Pt had urinary retention. Pt provided with bedpan and was unable to void. For this reason, ortez catheter was inserted. Pt did not have BM this shift. Bed in lowest position. Call light in reach. Pt denies need at this time.
--- NOTE | 2019-10-11 21:00 | NUR ---
ASSUMED PT CARE AT 1915 FROM POLLY DANIEL PT SITTING UP IN BED. ALERT AND ORIENTED AND ABLE TO MAKE NEEDS KNOWN. FAMILY AT BEDSIDE. OXYGEN AT 3L VIA NC; BIOX GREATER THAN 91%. PT DENIES ANY SOB. BIPAP AT BEDSIDE. LUNG SOUNDS ARE CLEAR TO BILATERAL UPPER LOBES AND DIMINISHED TO BILATERAL LOWER LOBES. NSR WITH HR 80-90'S. PATEL CATH IS PATENT AND DRAINING CLEAR, YELLOW URINE TO GRAVITY. PT IS CURRENTLY SALINE LOCKED. ABLE TO DRINK FLUIDS INDEPENDENTLY. DENIES PAIN AT THIS TIME. VSS. WILL CONTINUE TO MONITOR.
[2019-10-12 03:49] LABS: Base Excess Venous 8.1 mmol/L; Bicarbonate Venous 30.9 mmol/L (24.0-30.0); PO2 Venous 133 mmHg (38-42); pH Blood Venous 7.42 (7.34-7.37)
[2019-10-12 03:52] LABS: Hematocrit 30.4 % (33.0-51.0); Hemoglobin 9.9 g/dL (11.5-16.0); Mean Corpuscular HGB 29.4 pg (26.0-34.0); Mean Corpuscular HGB Conc 32.6 g/dL (31.5-36.5); Mean Platelet Volume 9.7 fL (9.1-12.4); Platelet Count 160 K/mm3 (150-400); RDW Coefficient Variation 11.9 % (11.7-14.2); RDW Standard Deviation 38.9 fL (35.1-46.3); Red Blood Cell Count 3.37 M/mm3 (3.80-5.20); White Blood Cell Count 5.19 K/mm3 (4.00-11.30)
[2019-10-12 03:55] LABS: Mean Corpuscular Volume 90 fL (80-100)
[2019-10-12 04:11] LABS: Magnesium, Blood 1.8 mg/dL (1.6-2.4); Phosphorus, Blood 1.9 mg/dL (2.5-4.9)
[2019-10-12 04:13] LABS: BAND PERCENT MAN 3 % (0-8); BASOPHILS PERCENT MAN 0 % (0-2); EOSINOPHILS PERCENT MAN 0 % (0-6); LYMPHOCYTES ABSOLUTE MAN 0.41 K/mm3 (0.84-5.20); LYMPHOCYTES PERCENT MAN 8 % (21-46); MONOCYTES PERCENT MAN 2 % (4-13); NEUTROPHILS ABSOLUTE MAN 4.67 K/mm3 (1.96-9.15); SEG NEUTROPHILS PERCENT MAN 87 % (41-73); TOTAL CELLS COUNTED 100
--- NOTE | 2019-10-12 06:04 | NUR ---
END OF SHIFT SUMMARY PT HAS REMAINED ALERT AND ORIENTED. SHE HAS BEEN ON 3L VIA NC MOST OF NIGHT; HOWEVER, WHEN SHE FELL ASLEEP AT APPROXIMATELY 0200 SHE WAS PLACED ON THE BIPAP; HOWEVER, SHE WAS UNABLE TO TOLERATE IPAP OF 20; RT TURNED DOWN TO IPAP OF 15 WHICH SHE WAS ABLE TO TOLERATE. THEREFORE, BIPAP SETTINGS REMAINED 15/8 WITH FIO2 30%. PT JUST SWITCHED BACK TO 3L VIA NC THIS AM WHEN SHE WAS WOKEN UP FOR MORNING MEDICATIONS. LUNG SOUNDS REMAIN CLEAR TO BILATERAL UPPER LOBES AND DIMINISHED TO BILATERAL LOWER LOBES. DENIES ANY SOB. BIOX HAS REMAINED GREATER THAN 91%. FAMILY HAS BEEN AT BEDSIDE ALL NIGHT. CALL LIGHT WITHIN REACH; ABLE TO MAKE NEEDS KNOWN. WILL CONTINUE TO MONITOR UNTIL REPORT IS HANDED OFF TO ONCOMING RN.
--- NOTE | 2019-10-12 08:15 | NUR ---
BEGINNING OF SHIFT Assumed care of pt at 0700. Bedside report received from Fer MATIAS. Pt on 3 LPM NC, which is home dose of O2. SR per monitor. Pt OOB to chair for breakfast. Tolerates activity well. Bed in lowest position. Call light in reach. Pt denies need at this time.
--- NOTE | 2019-10-12 08:33 | NUR ---
DR MOORE IN ROOM Plan of care discussed. Pt caitlyn for PCU status. Discharge plan reviewed. Goal for patient to discharge with noninvasive ventilator for home use.
--- NOTE | 2019-10-12 14:00 | NUR ---
CALL PLACED TO DR WOLFE Inquired if pt could switch from V60 BiPAP to M-series. Per respiratory therpaist, Bennett, this would be an appropriate swtich. Dr Wolfe stated she would like pt to remain on V60 BiPAP
--- NOTE | 2019-10-12 15:50 | NUR ---
TRANSFER TO PCU Pt transferred to PCU 16 via wheelchair, accompanied by spouse and this RN. Pt tolerated transfer well. Chart, belongings, and medications transferred with patient. Telephone report given to Miquel MATIAS prior to transfer.
--- NOTE | 2019-10-12 18:44 | NUR ---
PT TRANSFERRED FROM 1CU 4 TO ROOM PCU 16 AT 1530- ALERT AND ORIENTED. ORINTED TO ROOM SET UP, CALL LIGHT AND SAFETY. WITH PT AND SUPPORTIVE IN CARE. VSS, TOLERATING CLEARS. RESP EVEN UNLABORED, LUNGS DIM LOWER 3/4, O2 3L/NC.
--- NOTE | 2019-10-12 18:46 | NUR ---
SUMMARY- PT ALERT AND ORIENTED, SBA TO BSC. VOIDING WITHOUT DIFFICULTY, HAS SM BM, PT STATES FIRST SINCE SHE'S BEEN IN HOSP. TOLERATING FOOD AND FLUIDS. LUNG FIENLD DIM, O2 3L/NC, RESP EVEN UNLABORED. USES CALL LIGHT APPROPRIATELY. HOME FOR THE [facility].
--- NOTE | 2019-10-12 23:54 | NUR ---
ASSUMED CARE AT 1900. OOB TO BS AND VERY SOB W/ THIS ACTIVITY. DENIES ANY PAIN, SOME HS SNACKING. SATS WNL ON 3L . W/ EXERTION. BP UP WILL RETAKE POST BACK TO BED RECOVERY. AWARE SHE WILL WEAR BIPAP V 60 ALL NOC. LUNG SHAFFER SOUND CLEAR BUT DIMINISHED. NO PRODUCTIVE COUGHING
[2019-10-13 03:57] LABS: BASOPHILS PERCENT AUTO 0 % (0-2); EOSINOPHILS PERCENT AUTO 0 % (0-6); Hematocrit 31.5 % (33.0-51.0); Hemoglobin 10.2 g/dL (11.5-16.0); IMMATURE GRAN ABSOLUTE AUTO 0.03 K/mm3 (0.00-0.10); IMMATURE GRAN PERCENT AUTO 1 % (0-1); LYMPHOCYTES ABSOLUTE AUTO 0.28 K/mm3 (0.84-5.20); LYMPHOCYTES PERCENT AUTO 5 % (21-46); MONOCYTES PERCENT AUTO 4 % (4-13); Mean Corpuscular HGB 29.1 pg (26.0-34.0); Mean Corpuscular HGB Conc 32.4 g/dL (31.5-36.5); Mean Corpuscular Volume 90 fL (80-100); Mean Platelet Volume 9.8 fL (9.1-12.4); NEUTROPHILS ABSOLUTE AUTO 5.18 K/mm3 (1.96-9.15); NEUTROPHILS PERCENT AUTO 91 % (41-73); Platelet Count 177 K/mm3 (150-400); RDW Coefficient Variation 12.3 % (11.7-14.2); RDW Standard Deviation 39.8 fL (35.1-46.3); Red Blood Cell Count 3.51 M/mm3 (3.80-5.20); White Blood Cell Count 5.69 K/mm3 (4.00-11.30)
[2019-10-13 04:20] LABS: Anion Gap 3 mmol/L (6-16); Blood Urea Nitrogen 8 mg/dL (8-24); Bun/Creatinine Ratio 16.7 (12.0-20.0); CO2, Blood 34 mmol/L (21-32); Calcium, Blood 8.3 mg/dL (8.5-10.1); Chloride, Blood 103 mmol/L (98-108); Creatinine, Blood 0.48 mg/dL (0.40-1.00); Glomerular Filtration Rate >60 (60-); Glucose, Blood 148 mg/dL (70-99); Potassium, Blood 3.8 mmol/L (3.5-5.5); Sodium, Blood 140 mmol/L (136-145)
--- NOTE | 2019-10-13 06:19 | NUR ---
SHIFT SUMMARY . REFUSED BIPAP V 60 . TRIED IT FOR 15 MINUTES. "I KNOW MY DR WILL BE UPSET BUT THAT RESP THERAPIST DOESNT KNOW WHAT SHE IS DOING . SHE CAN NOT GET ME A MASK THAT FITS , SO I CAN NOT WEAR IT TONIGHT, " VERY [place] WHEN OOB TO BR. DESIRES TO TURN O2 UP FROM 3L TO 4 L ONLY FOR OOB TO BSC. LOOSE COUGH AND CLEAR SPUTUM, SM AMT. REPORTS 4L DOES HELP FOR OOB ACTIVITY. REPORTS MD ORDERED THIS FOR HOME SINCE JANUARY. SR UNLESS UP THEN ST 120
[2019-10-13 08:20] LABS: PCO2 Arterial 49.2 mmHg (35-45); PO2 Arterial 92.7 mmHg (80-100); pH Blood Arterial 7.45 (7.35-7.45)
--- NOTE | 2019-10-13 11:25 | NUR ---
BIPAP TALKED WITH PT ABOUT DECREASING THE BIPAP PRESSURE TOIGHT AND GIVING IT A TRY. DURING THE COURSE OF THIS CONVERSATION PT SHARED THAT SHE HAS HER BEAULIEU DONE. ASKED PT/DG IF SHAMA HAD A POWER OF HEALTH WELL? SHE DOES. aS WE CONVERSED PT SHARED THAT SHE DIDN'T WANT TO WEAR THE BIPAP. SHE IS VERY CLAUSTERPHOBIC. ASKED HER WHAT SHE WANTED? SHE STATED TO GO HOME WITH HOSPICE. "I KNOW I AM GOING TO SOON." DAUGHTER WAS CRYING BUT VOICED SUPPORT OF PT STATEMENT. CONTINUE POT.
--- NOTE | 2019-10-13 12:37 | NUR ---
Initial Visit: Palliative Care Consult for Advanced Care Planning. Spoke with bedside nurse Kylah prior to visit. Pt is interested in hospice and would benefit from palliative care visit. Spoke with Dr Wolfe and discussed case. Dr Wolfe reports hospice discussion is appropriate. Pt is A&O and appears comfortable. Pt's Ludwig and daughter Karyna at bedside. Engaged in therapeutic discussion regarding goals of care. Reviewed plan of care and discussed values and goals. Discussed hospice as an option and Pt expresses interest. Educated on hospice philosophy with V/U made by Pt and family. Perla Marcum RN, bedside nurse Kylah, and RT Ping are also present during visit. Discussion was made regarding BIPAP. Pt reports that she does not want to continue BIPAP and it causes anxiety and discomfort. Daughter and tearful intermitently during visit with emotional support offered. Pt chooses hospice and family is agreeable. Instructed on hospice agencies to choose from and Pt chooses [facility]. Left palliative care contact information and instructed to call with any questions or concerns. Pt and family expresses appreciation of visit. Called Dr Han and Dr Guerra and discussed Pt's wishes for hospice with no BIPAP. Called [facility] domi Reese and reported Pt's choice of [facility]. Palliative Care will remain available.
--- NOTE | 2019-10-13 13:59 | NUR ---
RT WAS CONSULTED YESTERDAY TO CONSIDER OPTIONS FOR HOME NON INVASIVE VENTILATION. PT GETS O2 THROUGH [facility], [place]. CONTACTED THEM AND INVOLVED THEM TO GET PT SET WITH TRILOGY, WORKED MORE ON THIS TODAY AND HAD EVERYTHING READY BUT PT HAS DECIDED TO GO TO HOSPICE/COMFORT SO THIS EFFORT HAS BEEN TERMINATED, SHOULD PT CHANGE HER MIND WE WILL REVISIT THE IDEA.
--- NOTE | 2019-10-13 16:20 | NUR ---
Spiritual Care inital note; I met with Gaby and her Stepan this morning, before decsion made for hospice. She and her appeared to enjoy telling me stories from their long and happy relationship. Stepan made little jokes, and it was clear these two have astrong relationship. They are non-temple, but responded well to theraputic listening and encouragement. Now that decision made for comfort care/hospice, I will certainly continue to follow.
--- NOTE | 2019-10-13 20:15 | NUR ---
CARE ASSUMPTION PT A&O X4. VSS. MONITOR SHOWS NSR, HR 90s. LUNG SOUNDS CLEAR, DIM IN BASES. SPO2 > 92% ON 2L NC. PT CONFIRMS DESIRE FOR CONTINUATION OF CARE WHILE IN HOSPITAL W/ PLAN FOR HOSPICE ONCE HOME. WILL CONTINUE TO MONITOR AND PROVIDE CARE.
[2019-10-14 03:56] LABS: BASOPHILS PERCENT AUTO 0 % (0-2); EOSINOPHILS PERCENT AUTO 0 % (0-6); Hematocrit 36.2 % (33.0-51.0); Hemoglobin 11.5 g/dL (11.5-16.0); IMMATURE GRAN ABSOLUTE AUTO 0.03 K/mm3 (0.00-0.10); IMMATURE GRAN PERCENT AUTO 0 % (0-1); LYMPHOCYTES ABSOLUTE AUTO 0.48 K/mm3 (0.84-5.20); LYMPHOCYTES PERCENT AUTO 6 % (21-46); MONOCYTES PERCENT AUTO 5 % (4-13); Mean Corpuscular HGB Conc 31.8 g/dL (31.5-36.5); Mean Corpuscular Volume 91 fL (80-100); Mean Platelet Volume 9.9 fL (9.1-12.4); NEUTROPHILS ABSOLUTE AUTO 6.81 K/mm3 (1.96-9.15); NEUTROPHILS PERCENT AUTO 88 % (41-73); Platelet Count 183 K/mm3 (150-400); RDW Coefficient Variation 12.3 % (11.7-14.2); RDW Standard Deviation 40.8 fL (35.1-46.3); Red Blood Cell Count 3.97 M/mm3 (3.80-5.20); White Blood Cell Count 7.72 K/mm3 (4.00-11.30)
[2019-10-14 04:14] LABS: Anion Gap 6 mmol/L (6-16); Blood Urea Nitrogen 10 mg/dL (8-24); Bun/Creatinine Ratio 21.2 (12.0-20.0); CO2, Blood 29 mmol/L (21-32); Calcium, Blood 8.7 mg/dL (8.5-10.1); Chloride, Blood 103 mmol/L (98-108); Creatinine, Blood 0.47 mg/dL (0.40-1.00); Glomerular Filtration Rate >60 (60-); Glucose, Blood 136 mg/dL (70-99); Potassium, Blood 3.7 mmol/L (3.5-5.5); Sodium, Blood 138 mmol/L (136-145)
--- NOTE | 2019-10-14 05:20 | NUR ---
SHIFT SUMMARY PT A&O X4. VSS. MONITOR SHOWS NSR. LUNG SOUNDS CLEAR, DIM IN BASES. SPO2 > 92% ON 2L NC. PT REPORTS PLAN TO BEGIN HOSPICE ONCE DISCHARGED HOME. PT ALSO REPORTS HAVING GOOD HOME SUPPORT FROM DAUGHTER. PT ABLE TO SLEEP MAJORITY OF NIGHT. NO EVENTS THIS SHIFT. WILL CONTINUE TO MONITOR AND PROVIDE CARE UNTIL REPORT OFF TO DAY SHIFT RN.
--- NOTE | 2019-10-14 08:22 | NUR ---
Cheerful, pleasantly conversant with no c/o pain. States that she feels up to walking into the bathroom today; her oxygen delivery was fitted with extension tubing to make this possible. Tolerated walking into the bathroom independently with oxygen 3 l/min; spo2 upon return to room was 94%. Oxygen delivery returned to 2 l/min after activity was done. Noted elevated blood pressure. STates that she normally takes lasix (this was held due to her dehydration, per daughter) and Toprol XL (also held per daughter this admission due to hypotension initially). Pt to discuss restarting these with Dr. Brewer. Eating breakfast without difficulty this morning; good appetite noted.
[2019-10-15 03:44] LABS: BASOPHILS PERCENT AUTO 0 % (0-2); EOSINOPHILS ABSOLUTE AUTO 0.04 K/mm3 (0.00-0.68); EOSINOPHILS PERCENT AUTO 1 % (0-6); Hematocrit 37.5 % (33.0-51.0); IMMATURE GRAN ABSOLUTE AUTO 0.05 K/mm3 (0.00-0.10); IMMATURE GRAN PERCENT AUTO 1 % (0-1); LYMPHOCYTES ABSOLUTE AUTO 2.07 K/mm3 (0.84-5.20); LYMPHOCYTES PERCENT AUTO 25 % (21-46); MONOCYTES ABSOLUTE AUTO 0.89 K/mm3 (0.16-1.47); MONOCYTES PERCENT AUTO 11 % (4-13); Mean Corpuscular HGB 29.8 pg (26.0-34.0); Mean Corpuscular Volume 93 fL (80-100); Mean Platelet Volume 9.6 fL (9.1-12.4); NEUTROPHILS ABSOLUTE AUTO 5.36 K/mm3 (1.96-9.15); NEUTROPHILS PERCENT AUTO 64 % (41-73); Platelet Count 207 K/mm3 (150-400); RDW Coefficient Variation 12.2 % (11.7-14.2); RDW Standard Deviation 42.2 fL (35.1-46.3); Red Blood Cell Count 4.03 M/mm3 (3.80-5.20); White Blood Cell Count 8.41 K/mm3 (4.00-11.30)
[2019-10-15 04:00] LABS: Anion Gap 5 mmol/L (6-16); Blood Urea Nitrogen 13 mg/dL (8-24); CO2, Blood 33 mmol/L (21-32); Calcium, Blood 8.4 mg/dL (8.5-10.1); Chloride, Blood 101 mmol/L (98-108); Creatinine, Blood 0.52 mg/dL (0.40-1.00); Glomerular Filtration Rate >60 (60-); Glucose, Blood 85 mg/dL (70-99); Potassium, Blood 3.6 mmol/L (3.5-5.5); Sodium, Blood 139 mmol/L (136-145)
--- NOTE | 2019-10-15 07:33 | NUR ---
Bedside report received from Jonathan Willoughby RN. The pt is awake, states that she did not sleep well last night at all because it sounded like they were doing construction all night next door. She is eager to go home today.
--- NOTE | 2019-10-15 07:35 | NUR ---
a+o, ready to go home, discussed home expectations and medications, call light in reach, bed in low position, able to transfer self to and from bathroom, bsr shared with day staff and pt
[2019-10-15] MEDS ORDERED: PRED20 PO (12:59)
== END 2019-10-15 16:17 | disposition hospice, home (50) | DRG 189 ==
LOC: ER 01:05 → ICUW 03:14 → ICUE 03:14 → PCU 10-12 15:33
PROVIDERS: Emergency Medicine; Family Medicine; Internal Medicine Pulmonary Disease; ADMIT Hospitalist
PROC: 5A09357 Assistance with Respiratory Ventilation, Less than 24 Consecutive Hours, Continuous Positive Airway Pressure (ICD-10-PCS; principal; 2019-10-11)
DX: J96.21 Acute and chronic respiratory failure with hypoxia (principal); G92 Toxic encephalopathy; I50.32 Chronic diastolic (congestive) heart failure; E87.1 Hypo-osmolality and hyponatremia; Z51.5 Encounter for palliative care; J43.9 Emphysema, unspecified; J96.22 Acute and chronic respiratory failure with hypercapnia; Z66 Do not resuscitate; E78.5 Hyperlipidemia, unspecified; Z99.81 Dependence on supplemental oxygen; Z87.891 Personal history of nicotine dependence; Z79.82 Long term (current) use of aspirin; J47.9 Bronchiectasis, uncomplicated
CPT/HCPCS: 36415; 36600; 51702; 71045; 80047; 80048; 80053; 81001; 82803; 83605; 83735; 84100; 84145; 84484; 85007; 85014; 85025; 85027; 93005; 93010; 94640; 94644; 94660; 94760; 94762; 96365; 99285-25; J0456; J0692; J1650; J2920; J2930; J7030; J7050; J7060; J7512